=== PATIENT | female | born 1995 | race Caucasian/White ===

== ENCOUNTER 2023-08-17 08:22 | Emergency (ER) | payer MEDICAID | END 2023-08-17 09:10 | disposition home or self-care (01) | LOC: VM.ED 08:22 | DX: T45.4X1A Poisoning by iron and its compounds, accidental (unintentional), initial encounter (principal) | CPT/HCPCS: 99283; 99284 ==

== ENCOUNTER 2024-09-30 10:14 | Emergency (ER) | payer MEDICAID ==
[2024-09-30] MEDS ORDERED: Sodium Chloride 0.9% 10 ML Syringe FLUSH PRN (11:00)
[2024-09-30 11:13] LABS: BASOPHILS ABSOLUTE AUTO 0.0 x10^3/uL (0.0-0.2); BASOPHILS PERCENT AUTO 0.4 % (0.2-1.2); EOSINOPHILS ABSOLUTE AUTO 0.0 x10^3/uL (0.0-0.5); EOSINOPHILS PERCENT AUTO 1.4 % (0.0-4.0); IMMATURE GRAN ABSOLUTE AUTO 0.00 x10^3/uL (0.00-0.07); IMMATURE GRAN PERCENT AUTO 0.00 % (0.00-0.43); LYMPHOCYTES ABSOLUTE AUTO 1.1 x10^3/uL (1.0-4.8); LYMPHOCYTES PERCENT AUTO 39.1 % (25.0-50.0); MONOCYTES ABSOLUTE AUTO 0.3 x10^3/uL (0.0-0.8); MONOCYTES PERCENT AUTO 10.9 % (2.0-11.0); NEUTROPHILS ABSOLUTE AUTO 1.3 x10^3/uL (1.8-7.7); NEUTROPHILS PERCENT AUTO 48.2 % (50.0-80.0); PLATELET COUNT,PLT 211 x10^3/uL (130-400); RED BLOOD CELL COUNT 3.75 x10^6/uL (4.00-5.50)
[2024-09-30 11:26] LABS: APPEARANCE,URINE SLIGHTLY CLOUDY (CLEAR); GLUCOSE,URINE NEGATIVE (NEGATIVE); OCCULT BLOOD,URINE TRACE-INTACT (NEGATIVE)
[2024-09-30 11:28] LABS: SQUAMOUS EPITHELIAL CELLS,UR MODERATE /HPF (NOT SEEN)
[2024-09-30 11:29] LABS: INR 1.0 (0.9-1.1); PTT,PARTIAL THROMBOPLSTIN TIME 26.8 SEC (23.5-33.2)
[2024-09-30 11:31] LABS: WHITE BLOOD CELL COUNT,WBC 2.8 x10^3/uL (4.0-10.0)
[2024-09-30 11:32] LABS: A/G RATIO 1.58; ALANINE AMINOTRANSFERASE,ALT 24 U/L (14-59); ASPARTATE AMNIOTRANSFERASE,AST 16 U/L (15-37); BILIRUBIN TOTAL 0.5 mg/dL (0.2-1.0); BLOOD UREA NITROGEN,BUN 9 mg/dL (7-18); CARBON DIOXIDE,CO2 30 mmol/L (21-32); CHLORIDE,CL 104 mmol/L (98-107); CREATININE 0.7 mg/dL (0.55-1.02); ESTIMATED GFR 120 mL/min (>=60); GLUCOSE RANDOM 99 mg/dL (70-99); POTASSIUM,K 3.8 mmol/L (3.5-5.1); PROTEIN TOTAL,TP 6.7 g/dL (6.4-8.2); SODIUM,NA 141 mmol/L (136-145)
[2024-09-30 11:34] LABS: LACTIC ACID 0.5 mmol/L (0.4-2.0)
== END 2024-09-30 12:24 | disposition home or self-care (01) ==
LOC: VM.ED 10:14
DX: R10.32 Left lower quadrant pain (principal); Z88.2 Allergy status to sulfonamides; Z88.0 Allergy status to penicillin
CPT/HCPCS: 36415; 80053; 81001; 81025; 83605; 83735; 85025; 85610; 85730; 86140; 99283; 99284